=== PATIENT | female | born 1985 | race Caucasian/White ===

== ENCOUNTER 2018-09-02 21:58 | Emergency (ER) | payer BC ==
[2018-09-02] MEDS ORDERED: NORMAL SALINE 1000 ML 1,000 ML IV PRN (22:40)
[2018-09-02] MEDS ORDERED: DIPHENHYDRAMINE HCL 50 MG CAPSULE PO ONE (22:41)
--- NOTE | 2018-09-02 23:05 | ER Document Report ---
ED General - General Chief Complaint: Headache <24 hrs old Stated Complaint: POSSIBLE ALLERGIC REACTION Mode of Arrival: Medic Information source: Patient Notes: Patient presents stating that she developed a headache around lunchtime today. Patient states that gradually through the day her headache started to worsen and she started to realize that she was having a migraine. Patient took a dose of Imitrex around 7:00 and states that about 15 minutes after taking the Imitrex she developed a heaviness all of her extremities and a muscle tension sensation any clenching of her jaw. Patient states that typically she had a prefilled cartridges of Imitrex although this when she had to drop the medication out of the vial. Patient believes that she did take the correct amount of medication. TRAVEL OUTSIDE OF THE [place] IN LAST 30 DAYS: No - HPI Onset: This evening Onset/Duration: Gradual Pain Level: 2 Associated symptoms: Headache, Nausea, Vomiting, Other - Heaviness of extremities. denies: Chest pain, Nonproductive cough, Productive cough, Diarrhea, Fever Exacerbated by: Denies Relieved by: Denies Similar symptoms previously: No Recently seen / treated by doctor: No - Related Data Allergies/Adverse Reactions: Penicillins Allergy (Verified 09/02/18 22:19) rash prochlorperazine [From Compazine] Allergy (Verified 09/02/18 22:19) Unknown reaction Sulfa (Sulfonamide Antibiotics) Allergy (Verified 09/02/18 22:20) Pruritis Past Medical History - General Information source: Patient - Social History Smoking Status: Current Some Day Smoker Chew tobacco use (# tins/day): No Frequency of alcohol use: Occasional Drug Abuse: None Occupation: RN Lives with: Family Family History: Reviewed & Not Pertinent Patient has suicidal ideation: No Patient has homicidal ideation: No Neurological Medical History: Reports: Hx Migraine, Other - Restless leg syndrome Renal/ Medical History: Denies: Hx Peritoneal Dialysis GI Medical History: Reports: Hx Gastroesophageal Reflux Disease Psychiatric Medical History: Reports: Hx Depression Past Surgical History: Reports: Hx Cholecystectomy Review of Systems - Review of Systems Constitutional: No symptoms reported. denies: Fever, Recent illness EENT: Other - Clenching, tightness of jaw muscles Cardiovascular: No symptoms reported. denies: Chest pain Respiratory: No symptoms reported. denies: Cough Gastrointestinal: Nausea, Vomiting. denies: Abdominal pain, Diarrhea Genitourinary: No symptoms reported Female Genitourinary: No symptoms reported Musculoskeletal: Other - Heavy sensation to extremities. denies: Neck pain Skin: No symptoms reported. denies: Rash Hematologic/Lymphatic: No symptoms reported Neurological/Psychological: Headaches. denies: Confusion Physical Exam - Vital signs Vitals: Temp Pulse Resp BP Pulse Ox 98.1 F 71 14 118/65 100 09/02/18 22:09 09/02/18 22:09 09/02/18 22:09 09/02/18 22:09 09/02/18 22:09 - General General appearance: Appears well, Alert In distress: None - HEENT Head: Normocephalic, Atraumatic Eyes: Normal Conjunctiva: Normal Pupils: PERRL Nasal: Normal Mouth/Lips: Other - Patient is talking through clenched teeth, after passively moving neck, patient is able to open jaw and talk normally without difficulty Mucous membranes: Dry Pharynx: Normal Neck: Normal, Supple. No: Lymphadenopathy, Meningismus - Respiratory Respiratory status: No respiratory distress Chest status: Nontender Breath sounds: Normal. No: Rales, Rhonchi, Stridor Chest palpation: Normal - Cardiovascular Rhythm: Regular Heart sounds: S1 appreciated, S2 appreciated Murmur: No - Back Back: Normal, Nontender - Extremities General upper extremity: Normal inspection, Nontender, Normal color, Normal strength. No: Edema General lower extremity: Normal inspection, Nontender, Normal color, Normal strength. No: Edema - Neurological Neuro grossly intact: Yes Notes: Patient reports heaviness to extremity, patient able to gradually lift arms against gravity. Once extremity is raised passively, patient has normal strength against gravity as well as resistance - Psychological Associated symptoms: Normal affect, Normal mood - Skin Skin Temperature: Warm Skin Moisture: Dry Skin Color: Normal Course - Re-evaluation Re-evalutation: 09/02/18 22:[address] Jimenez regarding patient presentation and diagnostic evaluation. Agrees with plan to order chemistry panel and recommends giving a dose of oral Benadryl to help manage patient's symptoms. Patient presently states that her muscle heaviness seems to have improved at this time and that her jaw does not feel clenched and is able to talk normally. 09/02/18 23:49 Patient resting comfortably, denies any heavy sensation to her extremities. Denies any feeling of muscle clenching or tightness. Patient states headache is almost completely resolved. Discussed worsening signs or symptoms that patient should return immediately for. Patient encouraged to follow-up with her primary doctor to discuss future migraine headache treatment. Patient encouraged to avoid use of Imitrex until she has discussed its use with her primary doctor. - Vital Signs Vital signs: Temp Pulse Resp BP Pulse Ox 98.1 F 81 14 115/55 L 100 09/02/18 22:09 09/03/18 00:04 09/03/18 00:04 09/03/18 00:04 09/03/18 00:04 - Laboratory Result Diagrams: 09/02/18 22:50 Laboratory results interpreted by me: 09/02/18 22:50 Chloride 108 H Labs- Entire Visit 09/02/18 22:50 Sodium 142.3 Potassium 4.5 Chloride 108 H Carbon Dioxide 23 Anion Gap 11 BUN 11 Creatinine 0.64 Est GFR ( Amer) > 60 Est GFR (Non-Af Amer) > 60 Glucose 103 Calcium 9.4 Discharge - Discharge Clinical Impression: Medication adverse effect Qualifiers: Encounter type: initial encounter Qualified Code(s): T50.905A - Adverse effect of unspecified drugs, medicaments and biological substances, initial encounter Headache Qualifiers: Headache type: unspecified Headache chronicity pattern: unspecified pattern Intractability: not intractable Qualified Code(s): R51 - Headache Condition: Stable Disposition: HOME, SELF-CARE Instructions: Migraine Headache ([facility]) Additional Instructions: Return immediately for any new or worsening symptoms Followup with your primary care provider, call tomorrow to make a followup appointment Avoid Imitrex in the future Prescriptions: Butalb/Acetaminophen/Caffeine [Fioricet (50-325-40 mg) Tablet] 1 - 2 tab PO Q4H PRN #12 each PRN Reason: Referrals: [facility] [NO LOCAL MD] - Follow up as needed
[2018-09-02 23:16] LABS: ANION GAP 11 (5-19); BLOOD UREA NITROGEN 11 mg/dL (7-20); CALCIUM 9.4 mg/dL (8.4-10.2); CARBON DIOXIDE 23 mmol/L (22-30); CHLORIDE 108 mmol/L (98-107); GLUCOSE 103 mg/dL (75-110); POTASSIUM 4.5 mmol/L (3.6-5.0); SODIUM 142.3 mmol/L (137-145)
[2018-09-03 00:06] VITALS: BP 115/55
== END 2018-09-03 00:04 | disposition home or self-care (01) ==
LOC: ER 21:58
DX: T50.905A Adverse effect of unspecified drugs, medicaments and biological substances, initial encounter (principal); R51 Headache; R11.2 Nausea with vomiting, unspecified; X58.XXXA Exposure to other specified factors, initial encounter; F17.200 Nicotine dependence, unspecified, uncomplicated; Z88.0 Allergy status to penicillin; Z88.2 Allergy status to sulfonamides; Z90.49 Acquired absence of other specified parts of digestive tract
CPT/HCPCS: 99284; 96360; 36415; 80048; J7030

== ENCOUNTER 2020-04-18 09:14 | Emergency (ER) | payer BC ==
--- NOTE | 2020-04-18 10:14 | ER Document Report ---
HPI - HPI Time Seen by Provider: 04/18/20 10:07 Pain Level: 1 - CONSTITUTIONAL Notes: 35-year-old female presents emergency room with left lower calf pain that is been bothering her for the last 3 weeks. Patient denies any trauma, fall or history of blood clots. Patient denies any trauma to her lower extremities or calf. States she only has discomfort when she palpates her calf. Has not tried any [id number] medications to help with her pain, has not tried any heat or icing, has not tried any elevation or compression stockings. Patient denies any history of blood clots, pulmonary embolisms, clotting disorders, recent intermittent periods of immobilization, long car flight rides, diagnosis of cancer, recent surgeries in the last month. Patient states she is 4.5 months from a done in December 2019. Denies fevers, chills, chest pain,palpitations, shortness of breath, dyspnea, nausea, vomiting, diarrhea, abdominal pain, hematuria,blurred vision, double vision, loss of vision, speech changes, LH, dizziness, syncope, headaches, wheezing, ST, URI, neck pain, weakness, bowel or bladder dysfunction, saddle anesthesia, numbness or tingling in bilateral upper or lower extremities equally, muscle paralysis, weakness in bilateral upper or lower extremities equally or rash. Denies IV drug use. MEDICATIONS: I agree with the patient medications as charted by the RN. ALLERGIES: I agree with the allergies as charted by the RN. PAST MEDICAL HISTORY/PAST SURGICAL HISTORY: Reviewed and agree as charted by RN. SOCIAL HISTORY: Reviewed and agree as charted by RN. FAMILY HISTORY: No significant familial comorbid conditions directly related to patient complaint EXAM: Reviewed vital signs as charted by RN. REVIEW OF SYSTEMS:reviewed vital signs by RN CONSTITUTIONAL : Denies fever, chills, or sweats. Denies recent illness. EENT: Denies eye, ear, throat, or mouth pain or symptoms. Denies nasal or sinus congestion or discharge. Denies throat, tongue, or mouth swelling or difficulty swallowing. CARDIOVASCULAR: Denies chest pain. Denies palpitations or racing or irregular heart beat. Denies ankle edema. RESPIRATORY: Denies cough, cold, or chest congestion. Denies shortness of breath, difficulty breathing, or wheezing. GASTROINTESTINAL: Denies abdominal pain or distention. Denies nausea, vomiting, or diarrhea. Denies blood in vomitus, stools, or per rectum. Denies black, tarry stools. Denies constipation. GENITOURINARY: Denies difficulty urinating, painful urination, burning, frequency, blood in urine, or discharge. FEMALE GENITOURINARY: Denies vaginal bleeding, heavy or abnormal periods, irregular periods. Denies vaginal discharge or odor. MUSCULOSKELETAL: Reports pain to left calf for 3 weeks. denies back or neck pain or stiffness. Denies joint pain or swelling. SKIN: Denies rash, lesions or sores. HEMATOLOGIC : Denies easy bruising or bleeding. LYMPHATIC: Denies swollen, enlarged glands. NEUROLOGICAL: Denies confusion or altered mental status. Denies passing out or loss of consciousness. Denies dizziness or lightheadedness. Denies headache. Denies weakness or paralysis or loss of use of either side. Denies problems with gait or speech. Denies sensory loss, numbness, or tingling. Denies seizures. PSYCHIATRIC: Denies anxiety or stress. Denies depression, suicidal ideation, or homicidal ideation. ALL OTHER SYSTEMS REVIEWED AND NEGATIVE. PHYSICAL EXAMINATION: GENERAL: Well-appearing, well-nourished and in no acute distress. HEAD: Atraumatic, normocephalic. EYES: Pupils equal round and reactive to light, extraocular movements intact, co njunctiva are normal. ENT: Nares patent, oropharynx clear without exudates. Moist mucous membranes. NECK: Normal range of motion, supple without lymphadenopathy LUNGS: Breath sounds clear to auscultation bilaterally and equal. No wheezes rales or rhonchi. HEART: Regular rate and rhythm without murmurs ABDOMEN: Soft, nontender, nondistended abdomen. No guarding, no rebound. No masses appreciated. Female : deferred Musculoskeletal: Normal range of motion, no pitting or edema. No cyanosis. Left lower extremity with a palpable mass distal to calf muscle approximately 2 cm x 2 cm which is mobile, translucent, no erythema induration or warmth to touch. Tender on palpation. NEUROLOGICAL: Cranial nerves grossly intact. Normal speech, normal gait. Normal sensory, motor exams PSYCH: Normal mood, normal affect. SKIN: Warm, Dry, normal turgor, no rashes or lesions noted. Dictation was performed using [employer] recognition software - REPRODUCTIVE LMP: 04/01/20 Reproductive: DENIES: : Past Medical History - General Information source: Patient - Social History Smoking Status: Never Smoker Chew tobacco use (# tins/day): No Frequency of alcohol use: Occasional Drug Abuse: None Family History: Reviewed & Not Pertinent Patient has homicidal ideation: No Neurological Medical History: Reports: Hx Migraine Renal/ Medical History: Denies: Hx Peritoneal Dialysis GI Medical History: Reports: Hx Gastroesophageal Reflux Disease Psychiatric Medical History: Reports: Hx Depression Past Surgical History: Reports: Hx Cholecystectomy Vertical Provider Document - CONSTITUTIONAL Agree With Documented VS: Yes Exam Limitations: No Limitations General Appearance: WD/WN - INFECTION CONTROL TRAVEL OUTSIDE OF THE [place] IN LAST 30 DAYS: No Course - Re-evaluation Re-evalutation: 04/18/20 15:52 Afebrile vital stable no distress. Nurses notes reviewed. Ultrasound of lower extremity negative for DVT. Discussed with patient that she needs to take [id number] NSAIDs, apply heat 20 minutes on 20 minutes off several times a day. Patient adamantly states that she is not short of breath, no history of PE, DVT, is not on any anticoagulative therapy, does not have any clotting disorders, no recent surgery periods of immobilization history of cancer not on control. Discussed with patient to wear compressive stockings. Advised to follow-up with PCP within next 24 to 48 hours. After performing a Medical Screening Examination, I estimate there is LOW risk for RUPTURED ESOPHAGUS, PNEUMOTHORAX, PULMONARY EMBOLISM, ACUTE CORONARY SYNDROME, OR THORACIC AORTIC DISSECTION, thus I consider the discharge disposition reasonable. I have reevaluated this patient multiple times and no significant life threatening changes are noted. The patient and I have discussed the diagnosis and risks, and we agree with discharging home with close follow-up. We also discussed returning to the Emergency Department immediately if new or worsening symptoms occur. We have discussed the symptoms which are most concerning (e.g., bloody sputum, worsening pain or shortness of breath) that necessitate immediate return. - Vital Signs Vital signs: Temp Pulse Resp BP Pulse Ox 98.5 F 87 14 144/82 H 100 04/18/20 09:54 04/18/20 09:21 04/18/20 09:21 04/18/20 09:21 04/18/20 09:21 Discharge - Discharge Clinical Impression: Right leg pain, Leg pain Condition: Good Disposition: HOME, SELF-CARE Additional Instructions: your ultrasound today was negative for any DVT. This is likely just a strain of your right lower extremity. Apply heat 20 minutes on 20 minutes off several times a day. Compressive stockings. If you experience any worsening symptoms, any shortness of breath, chest pain, fever,etc return to the emergency room immediately Return immediately for any new or worsening symptoms. Follow up with primary care provider, call tomorrow to make followup appointment. Referrals: YUMI HYATT PA-C [Primary Care Provider] - Follow up as needed
--- NOTE | 2020-04-18 12:58 | RADIOLOGY REPORT (SQ) ---
EXAM DESCRIPTION: VENOUS UNILATERAL LOWER IMAGES COMPLETED DATE/TIME: 04/18/2020 12:49 pm REASON FOR STUDY: left calf pain x3w, 4m post pardum COMPARISON: None. TECHNIQUE: Dynamic and static neves scale and color images acquired of the left leg venous system. Se lected spectral images acquired with additional compression and augmentation maneuvers. The contralat eral common femoral vein and saphenofemoral junction were also imaged. Images stored on PACS. LIMITATIONS: None. FINDINGS: LEFT COMMON FEMORAL: Normal phasicity, compression and augmentation. No visualized echogenic material on g ray scale. No defects on color images. FEMORAL: Normal compression and augmentation. No visualized echogenic material on neves scale. No defe cts on color images. POPLITEAL: Normal compression, augmentation. No visualized echogenic material on neves scale. No defec ts on color images. CALF VESSELS: Normal compression, augmentation. No visualized echogenic material on neves scale. No de fects on color images. GSV and SSV: Normal compression, augmentation. No visualized echogenic material on neves scale. No def ects on color images. ANY DEEP VENOUS INSUFFICIENCY: Not evaluated. ANY EVIDENCE OF POPLITEAL CYST: No. OTHER: No other significant finding. RIGHT COMMON FEMORAL VEIN AND SAPHENOFEMORAL JUNCTION: Normal phasicity, compression and augmentation. No visualized echogenic material on neves scale. No de fects on color images. IMPRESSION: NO EVIDENCE OF DVT OR SVT IN THE LEFT LEG. TECHNICAL DOCUMENTATION: JOB ID: [id number] 2010 [employer]- All Rights Reserved Reading location - IP/workstation name: [email or web address]
[2020-04-18 13:25] VITALS: BP 136/81
== END 2020-04-18 13:27 | disposition home or self-care (01) ==
LOC: ER 09:14
DX: M79.662 Pain in left lower leg (principal); M79.604 Pain in right leg; R22.42 Localized swelling, mass and lump, left lower limb; Z98.890 Other specified postprocedural states
CPT/HCPCS: 93971; 99283